=== PATIENT | female | born 1935 | race Caucasian/White ===

== ENCOUNTER 2017-07-14 11:10 | Emergency (ER) | payer MEDICARE, OTHER ==
[~2017-07-14] VITALS: Ht 157.5 cm; Wt 69.0 kg
[~2017-07-14 11:10] MED LIST: CALCIUM600 MG PO; FISH OIL 1,2001 EACH PO; LEVOTHYROXINE75 MCG PO; MULTI VITAMIN1 EACH PO; NORCO 5-325 TA1 EACH PO; ST. JOSEPH ASPI81 MG PO; TOPROL XL25 MG PO; VITAMIN D32000 UNIT PO
--- NOTE | 2017-07-14 19:23 | EKG ---
[facility] [address] [facility] [address] [place] [address] Signed Sinus rhythm with frequent premature ventricular complexes Otherwise normal ECG No previous ECGs available Confirmed by ALAINA HUMPHRIES MD ([id number] on 07/14/2017 7:23:37 PM Electronically Signed By: ALAINA HUMPHRIES MD 07/14/171922 PATIENT NAME: NANCY DUMONT Electrocardiogram DATE OF : 35 PHYSICIAN: ALAINA HUMPHRIES MD REPORT #: [id number] REPORT IS CONFIDENTIAL AND NOT TO BE RELEASED WITHOUT AUTHORIZATION
== END 2017-07-14 14:40 | disposition short-term general hospital (02) ==
LOC: ED 11:10
DX: I44.1 Atrioventricular block, second degree (principal); E03.9 Hypothyroidism, unspecified; Z88.1 Allergy status to other antibiotic agents; Z88.6 Allergy status to analgesic agent; Z79.82 Long term (current) use of aspirin; Z79.899 Other long term (current) drug therapy
CPT/HCPCS: 71045; 80053; 83880; 84484; 85025; 85610; 93005; 93010; 99285

== ENCOUNTER 2019-09-02 12:50 | Emergency (ER) | payer MEDICARE, OTHER ==
[~2019-09-02] VITALS: Ht 157.5 cm; Wt 70.3 kg
[~2019-09-02 12:50] MED LIST changes: +ABILIFY5 MG; +FLECAINIDE ACET50 MG PO
--- NOTE | 2019-09-02 19:46 | EKG ---
[facility] [address] [facility] [address] [place] [address] Signed Sinus tachycardia Septal infarct , age undetermined Abnormal ECG When compared with ECG of 14-JUL-2017 11:15, premature ventricular complexes are no longer present Septal infarct is now present Confirmed by CINDY ALAS DO ([id number]) on 09/02/2019 7:45:57 PM Electronically Signed By: CINDY ALAS DO 09/02/19 1946 PATIENT NAME: NANCY DUMONT VEE Electrocardiogram DATE OF : 35 PHYSICIAN: CINDY ALAS DO REPORT #: [id number] REPORT IS CONFIDENTIAL AND NOT TO BE RELEASED WITHOUT AUTHORIZATION
== END 2019-09-02 14:16 | disposition home or self-care (01) ==
LOC: ED 12:50
DX: R07.9 Chest pain, unspecified (principal); E03.9 Hypothyroidism, unspecified; G47.30 Sleep apnea, unspecified; Z85.3 Personal history of malignant neoplasm of breast; Z88.5 Allergy status to narcotic agent; Z88.1 Allergy status to other antibiotic agents; Z79.82 Long term (current) use of aspirin; Z79.899 Other long term (current) drug therapy
CPT/HCPCS: 71045; 80053; 84443; 84484; 85025; 93005; 93010; 99285-25

== ENCOUNTER 2023-06-15 09:28 | Emergency (ER) | payer MEDICARE, OTHER ==
[~2023-06-15] VITALS: Ht 157.5 cm; Wt 64.1 kg
[2023-06-15 12:03] LABS: INFLUENZA B NAA NEGATIVE (NEGATIVE); RESPIRATORY SYNCYTIAL VIR NAA NEGATIVE (NEGATIVE)
[2023-06-15] MEDS ORDERED: VENTOLIN HFA18 GM INH (12:40)
[2023-06-15 12:50] VITALS: BP 117/51
== END 2023-06-15 12:50 | disposition home or self-care (01) ==
LOC: ED 09:28
PROVIDERS: Emergency Medicine
DX: U07.1 COVID-19 (principal)
CPT/HCPCS: 71045; 87502; 87651; 99283-25; C9803; U0002

== ENCOUNTER 2024-07-24 00:33 | Emergency (ER) | payer MEDICARE, OTHER ==
[~2024-07-24] VITALS: Ht 157.5 cm; Wt 66.7 kg
[~2024-07-24 00:33] MED LIST changes: +VENTOLIN HFA18 GM INH
[2024-07-24] MEDS ORDERED: LIDOCAINE & ANTACID 35 ML BTL PO ONE (00:45)
[2024-07-24] MEDS ORDERED: ASPIRIN 81 MG CHEW PO ONE (00:45)
[2024-07-24] MEDS ORDERED: MAGNESIUM400 MG PO (00:48)
[2024-07-24 00:52] LABS: HEMATOCRIT 39.6 % (35.0-50.0); HEMOGLOBIN 13.5 g/dL (12.0-18.0); MCH 31.1 (27-36); MCHC 34.2 g/dl (30-36); MCV 90.9 fl (81-99); PLATELET COUNT 267 K/uL (140-440); RBC 4.35 M/ul (4.3-5.7); RDW 14.3 (10.5-15.0)
[2024-07-24 01:15] LABS: EOSINOPHILS, MANUAL DIFF 2; LYMPHOCYTES, MANUAL DIFF 40; MONOCYTES, MANUAL DIFF 3; NEUTROPHILS, MANUAL DIFF 55
[2024-07-24] MEDS ORDERED: ondansetron HCL 4 MG/2 ML VIAL IV ONE (01:15)
[2024-07-24 01:16] LABS: ALBUMIN/GLOBULIN RATIO 1.21 (1.1-2.4); ANION GAP 13.9 (7-21); BILIRUBIN, TOTAL 0.4 mg/dL (0.2-1.0); BUN/CREATININE RATIO 22.58 (6.0-28.6); CALCIUM 9.9 mg/dL (8.5-10.1); CREATININE, SERUM 1.24 mg/dL (0.55-1.02); MAGNESIUM 2.2 mg/dL (1.8-2.4); POTASSIUM 3.9 mmol/L (3.5-5.1); PROTEIN, TOTAL 7.3 g/dL (6.4-8.2)
[2024-07-24] MEDS ORDERED: SUCRALFATE 1 GM TAB PO ONE (01:30)
[2024-07-24] MEDS ORDERED: PANTOPRAZOLE SODIUM 40 MG/10 ML VIAL IV ONE (01:30)
[2024-07-24] MEDS ORDERED: MORPHINE SULFATE 4 MG/ML VIAL IV ONE (01:30)
[2024-07-24] MEDS ORDERED: PROTONIX40 MG PO (02:36)
[2024-07-24] MEDS ORDERED: CARAFATE1 GM PO (02:36)
[2024-07-24 02:58] VITALS: BP 152/78
--- NOTE | 2024-07-24 11:53 | EKG ---
[facility] [address] [facility] [address] [place] [address] Signed Sinus tachycardia Septal infarct (cited on or before 02-SEP-2019) Abnormal ECG When compared with ECG of 02-SEP-2019 12:56, No significant change was found Confirmed by Ambrose Duarte MD ([id number]) on 07/24/2024 11:53:18 AM Electronically Signed By: AMBROSE DUARTE MD 07/24/24 1153 PATIENT NAME: NANCY DUMONT VEE Electrocardiogram DATE OF : 35 PHYSICIAN: AMBROSE DUARTE MD REPORT #: [id number] REPORT IS CONFIDENTIAL AND NOT TO BE RELEASED WITHOUT AUTHORIZATION
== END 2024-07-24 03:05 | disposition home or self-care (01) ==
LOC: ED 00:33
PROVIDERS: Family Medicine
DX: K29.70 Gastritis, unspecified, without bleeding (principal); E03.9 Hypothyroidism, unspecified; Z88.8 Allergy status to other drugs, medicaments and biological substances; Z88.6 Allergy status to analgesic agent; Z79.82 Long term (current) use of aspirin; Z79.890 Hormone replacement therapy; Z79.899 Other long term (current) drug therapy
CPT/HCPCS: 36415; 71045; 80053; 83690; 83735; 83880; 84484; 85025; 93005; 93010; 96374; 96375; 99285-25; A9270; J2270; J2405; J2470